=== PATIENT | female | born 1950 | race Caucasian/White ===

== ENCOUNTER 2025-01-10 05:59 | Observation (INO) ==
--- NOTE | 2024-12-14 13:09 | PAT Medication Instructions ---
Medication Instructions Date of Service December 14, 2024 Home Medications alendronate 70 mg tablet 70 mg PO Q7D atenolol 50 mg tablet 50 mg PO QAM atorvastatin 40 mg tablet 40 mg PO QAM calcium 600 mg (as carbonate)-vit D3 10 mcg (400 unit)-minerals tablet 1 tab PO BID famotidine 40 mg tablet 40 mg PO QAM fluoxetine 20 mg capsule (Prozac) 20 mg PO QAM levocetirizine 5 mg tablet 5 mg PO QPM lisinopril 20 mg tablet 20 mg PO QAM lorazepam 1 mg tablet 1 mg PO TID PRN Anxiety multivitamin 1 tab PO QAM aspirin 81 mg tablet,delayed release (Sidney Low Dose Aspirin) 81 mg PO QAM solifenacin 10 mg tablet (Vesicare) 10 mg PO QAM ASK your prescriber and surgeon alendronate 70 mg tablet 70 mg PO Q7D DO NOT take the morning of surgery calcium 600 mg (as carbonate)-vit D3 10 mcg (400 unit)-minerals tablet 1 tab PO BID lisinopril 20 mg tablet 20 mg PO QAM multivitamin 1 tab PO QAM solifenacin 10 mg tablet (Vesicare) 10 mg PO QAM Take morning of surgery With a small sip of water, OTHERWISE NOTHING TO EAT OR DRINK AFTER MIDNIGHT: atenolol 50 mg tablet 50 mg PO QAM atorvastatin 40 mg tablet 40 mg PO QAM famotidine 40 mg tablet 40 mg PO QAM fluoxetine 20 mg capsule (Prozac) 20 mg PO QAM lorazepam 1 mg tablet 1 mg PO TID PRN Anxiety (if needed) aspirin 81 mg tablet,delayed release (Sidney Low Dose Aspirin) 81 mg PO QAM (unless surgeon directed otherwise) Take evening before surgery calcium 600 mg (as carbonate)-vit D3 10 mcg (400 unit)-minerals tablet 1 tab PO BID levocetirizine 5 mg tablet 5 mg PO QPM lorazepam 1 mg tablet 1 mg PO TID PRN Anxiety (if needed) Other Notes If you have any questions please call us at [phone] or [phone] or [phone] or [phone]
--- NOTE | 2024-12-20 11:02 | Anesthesiology Consultation ---
Date of Service December 20, 2024 Assessment & Plan (1) Encounter for pre-operative examination: Plan - Outpatient joint assessment: Patient is currently scheduled for inpatient pathway. If re-evaluated and patient/surgeon requests outpatient pathway, patient is not ideal candidate for outpatient joint program from anesthesia standpoint. Chart Review Chart Review: Acceptable Risk for Surgery and Patient seen in Pre Admission Testing Teaching & Discussion Pre-Anesthesia Teaching/Discussion Notes: Instructed NPO after midnight before surgery, except medications with 15 cc of water. Medication instructions provided according to the PAT guidelines. History Surgery Operation Date: 01/10/25 10:40 Proposed Procedures p RightTotal Knee Arthroplasty - Lukasz Garcia MD Height/Weight Height: 5 ft 6 in Weight: 100.4 kg Allergies Allergy/AdvReac Type Severity Reaction Status Date / Time adhesive tape Allergy Intermediate Rash Verified 12/07/24 15:32 cefuroxime AdvReac Intermediate nausea and Verified 12/07/24 15:32 vomiting Medications Home Medications Medication Instructions Recorded Confirmed Last Taken alendronate 70 mg tablet 70 mg PO Q7D 06/08/22 12/07/24 09/21/23 atenolol 50 mg tablet 50 mg PO QAM 06/08/22 12/07/24 09/23/23 08:00 atorvastatin 40 mg tablet 40 mg PO QAM 06/08/22 12/07/24 09/23/23 08:00 calcium 600 mg (as carbonate)-vit 1 tab PO BID 06/08/22 12/07/24 09/23/23 08:00 D3 10 mcg (400 unit)-minerals tablet famotidine 40 mg tablet 40 mg PO QAM 06/08/22 12/07/24 09/23/23 08:00 fluoxetine 20 mg capsule (Prozac) 20 mg PO QAM 06/08/22 12/07/24 09/23/23 08:00 levocetirizine 5 mg tablet 5 mg PO QPM 06/08/22 12/07/24 09/22/23 22:00 lisinopril 20 mg tablet 20 mg PO QAM 06/08/22 12/07/24 09/22/23 12:00 lorazepam 1 mg tablet 1 mg PO TID PRN Anxiety 06/08/22 12/07/24 09/23/23 08:00 multivitamin 1 tab PO QAM 08/25/23 12/07/2409/23/23 08:00 aspirin 81 mg tablet,delayed 81 mg PO QAM 12/07/24 12/07/24 Unknown release (Sidney Low Dose Aspirin) solifenacin 10 mg tablet See Rx Instructions .Route 12/18/24 Unknown .COMPLEX #30 tabs Past Medical History Medical History Anxiety GERD (gastroesophageal reflux disease) controlled, stable per pt depending on certain foods History of COVID-19 (~2020) Jun 2021 > not hospitalized > mild symptoms;no current symptoms History of Mohs micrographic surgery for skin cancer nose History of nephrolithiasis 1 year ago Hyperlipidemia Hypertension controlled, stable per pt Migraine stable per pt On home oxygen therapy 2 LPM at HS Osteoporosis Overactive bladder Sleep apnea on supplemental oxygen 2 L HS, no CPAP or other device Patient denies h/o stroke, seizures, heart attack, heart failure, DM, blood clots/DVTs or blood transfusions. Exercise / Class Metabolic Activity III < 4 Walking/Shop/Light housework (denies chest discomfort or shortness of breath with usual activities) Past Family History Family History Sister Diabetes Past Surgical History Surgical History History of appendectomy History of carpal tunnel release of both wrists History of cholecystectomy History of colonoscopy History of hysterectomy History of repair of rectocele w/bladder tacking History of surgery on left wrist cyst removed History of total left knee replacement Hx of bilateral cataract extraction Hx of tonsillectomy Hx of tubal ligation S/P cystoscopy with ureteral stent placement w/laser lithotripsy; stent now removed Past Anesthesia History No Hx of Anesthesia Complications and No Family Hx of Anesthesia Complications History of PONV No Hx of PONV and No Hx of Motion Sickness Social History Smoking Status: Never smoker Do You Dip or Chew Tobacco: No Hx Alcohol Use: No Hx Substance Use: No substance use type: does not use Review of Systems Patient denies chest pain, shortness of breath, dyspnea on exertion, fever, chills, cough, wheezing, or palpitations. Physical Exam Vital Signs Vitals BP 148/84 P 53 TEMP 98.2 SP02 96% on RA RESP 18 Physical Patient resting comfortably in chair in no acute distress, alert and oriented, responding appropriately throughout visit Full cervical extension range of motion without pain TMD < 3 finger breadths Mallampati Score 3 Dentition: intact, denies chipped or loose teeth, caps/crowns, implants or bridg es Lungs: normal respiratory effort. Good air movement, clear throughout to auscultation, no adventitious breath sounds Cardiac: regular rate and rhythm, no murmurs noted Carotid arteries: negative bruit bilat Lab Results Anesthesia Preop Results Results Anesthesia Widget: WBC 2.96 K/ul (4.8-10.8) L 12/20/24 Hgb 12.2 g/dl (12.0-16.0) 12/20/24 Hct 35.8 % (37.0-47.0) L 12/20/24 Plt 187 K/uL (130-400) 12/20/24 Na 136 mmol/L (136-145) 12/20/24 K 4.1 mmol/L (3.5-5.1) 12/20/24 Cl 101 mmol/L (98-107) 12/20/24 CO2 33 mmol/L (21-32) H 12/20/24 BUN 16 mg/dl (6-23) 12/20/24 Creat 0.84 mg/dl (0.6-1.2) 12/20/24 Glucose Level 86 mg/dl (70-99(Fasting)) 12/20/24 PT 10.5 Seconds (9.0-12.0) 12/20/24 PTT 28 Seconds (21-31) 12/20/24 INR 1.0 (0.9-1.1) 12/20/24 Blood Type O Positive 12/20/24 Antibody Screen NEGATIVE 12/20/24 Testing Electrocardiogram Date: 12/20/24 Sinus bradycardia, rate 55 bpm Chest X-Ray Date: 12/20/24 No acute chest disease.
--- NOTE | 2025-01-04 10:16 | History & Physical Report ---
Date of Service January 04, 2025 Assessment & Plan (1) Right knee DJD: 74-year-old female 15 months out placement with advanced right knee DJD. She failed conservative measures. Happy with the left knee and would like to have her right knee replaced. Plan: We are going to proceed with a right total knee replacement. The risks and benefits of the procedure were explained and the patient understands. Informed consent obtained. He had problems with oxycodone last time and will try tramadol and see if he does any better without with postoperative pain. But will use aspirin for DVT prophy. He is planned to be discharged to home using home health. (2) Status post left knee replacement: (3) Hypertension: (4) Hyperlipidemia: (5) GERD (gastroesophageal reflux disease): History of Present Illness Chief Complaint: . Persistent right knee pain and discomfort. Primary Care Provider: Lary Eng PA-C . The patient is a 74-year-old female who presents now for surgical treatment of her right knee. Stef a long history of knee problems had her left knee replaced about 15 months ago. She has occasional aching pain in this knee but doing pretty well. She continued be limited and bothered by right knee pain. She has had injections which have become less successful over time. Describes global pain. The more she is up and onto more it hurts. She limps more as the day goes on. She has nighttime pain. Ready to have this knee fixed. Allergies Allergy/AdvReac Type Severity Reaction Status Date / Time adhesive tape Allergy Intermediate Rash Verified 12/07/24 15:32 cefuroxime AdvReac Intermediate nausea and Verified 12/07/24 15:32 vomiting Home Medications Medication Instructions Recorded Confirmed Type alendronate 70 mg tablet 70 mg PO Q7D 06/08/22 12/07/24 History atenolol 50 mg tablet 50 mg PO QAM 06/08/22 12/07/24 History atorvastatin 40 mg tablet 40 mg PO QAM 06/08/22 12/07/24 History calcium 600 mg (as carbonate)-vit 1 tab PO BID 06/08/22 12/07/24 History D3 10 mcg (400 unit)-minerals tablet famotidine 40 mg tablet 40 mg PO QAM 06/08/22 12/07/24 History fluoxetine 20 mg capsule (Prozac) 20 mg PO QAM 06/08/22 12/07/24 History levocetirizine 5 mg tablet 5 mg PO QPM 06/08/22 12/07/24 History lisinopril 20 mg tablet 20 mg PO QAM 06/08/22 12/07/24 History lorazepam 1 mg tablet 1 mg PO TID PRN Anxiety 06/08/22 12/07/24 History multivitamin 1 tab PO QAM 08/25/23 12/07/24 History aspirin 81 mg tablet,delayed 81 mg PO QAM 12/07/24 12/07/24 History release (Sidney Low Dose Aspirin) solifenacin 10 mg tablet See Rx Instructions .Route 12/18/24 Rx .COMPLEX #30 tabs Past Med/Surg History Problem List Urgency incontinence Medical History History of nephrolithiasis 1 year ago Osteoporosis Sleep apnea on supplemental oxygen 2 L HS, no CPAP or other device GERD (gastroesophageal reflux disease) controlled, stable per pt depending on certain foods History of COVID-19 (~2020) Jun 2021 > not hospitalized > mild symptoms;no current symptoms History of Mohs micrographic surgery for skin cancer nose Overactive bladder Anxiety Migraine stable per pt Hyperlipidemia Hypertension controlled, stable per pt On home oxygen therapy 2 LPM at HS Surgical History History of total left knee replacement History of repair of rectocele w/bladder tacking Hx of tubal ligation History of carpal tunnel release of both wrists S/P cystoscopy with ureteral stent placement w/laser lithotripsy; stent now removed Hx of bilateral cataract extraction Hx of tonsillectomy History of surgery on left wrist cyst removed History of colonoscopy History of hysterectomy History of cholecystectomy History of appendectomy Family History Sister Diabetes Social History Smoking Status: Never smoker Second Hand Exposure: No; Do You Dip or Chew Tobacco: No; Tobacco Cessation Education Requested by Patient: No Hx Alcohol Use: No Hx Substance Use: No Preferred Language: Syriac Communication Ability: Effective 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 Physical Exam . Physical examination reveals a pleasant middle-age female. Looks to be in pretty good health. Examination of both knees reveal patient walks independently. Examination of the right knee reveals slight varus alignment to her knee. Tender with medial joint line. Small knee effusion. Range of motion 5-1 20. No instability. No pain with hip motion. Examination left knee reveals a well-healed incision. She has anatomic alignment to the knee. Range of motion 0-1 20. Good straight leg raise. No instability. Constitutional WD/WN, vitals as above Respiratory normal respiratory effort, lungs clear to auscultation Cardiovascular RRR, no murmur, no edema Gastrointestinal (Abdomen) normal bowel sounds, soft, nontender, no hepatosplenomegaly Results & Data Results & Data Laboratory Results . X-rays of both knees were reviewed. X-rays of the right knee reveal advanced medial compartment arthritis. She got complete loss of the medial joint space. Diffuse osteopenia. Osteophytes primarily medially. The left knee replacement looks in good position without problems. Diagnostic Findings . PG Care Time/CCT Total # of Minutes Spent Total Time Spent with Patient: Total time spent is greater than 50% in coordination of care (as documented) at patient's floor/unit and/or counseling patient: Coding Level of Care Code None Diagnoses Right knee DJD M17.11 Status post left knee replacement Z96.652 Hypertension I10 Hyperlipidemia E78.5 GERD (gastroesophageal reflux disease) K21.9
[2025-01-10] MEDS: CeleBREX 200 MG CAP PO SCH (06:30)
[2025-01-10] MEDS: LR 500ML BOLUS, THEN 15ML/HR IV SCH (06:30)
[2025-01-10] MEDS ORDERED: ROPIVACAINE 0.5% 5 MG/ML 30 ML VIAL ONE (06:30)
[2025-01-10] MEDS: ACETAMINOPHEN 500 MG TAB PO SCH ×2 (06:30→12:43)
[2025-01-10] MEDS ORDERED: BUPIVACAINE 0.5 % 5 MG/1 ML PF 10ML VIAL ONE (06:30)
[2025-01-10] MEDS: LR 60ML/HR IV SCH (06:31)
[2025-01-10] MEDS: dexAMETHasone**PF** 10 MG/ML VIAL IV SCH (06:31)
[2025-01-10] MEDS: METOCLOPRAMIDE HCL 10 MG TABLET PO SCH (06:31)
[2025-01-10] MEDS: FAMOTIDINE 20 MG TAB PO SCH (06:31)
--- NOTE | 2025-01-10 06:44 | History & Physical Bridge Note ---
Date of Service January 10, 2025 History & Physical Bridge Note I have examined the patient, reviewed the History & Physical and in the interval since the performance of the History & Physical I have noted the following changes of clinical significance: no changes noted
[2025-01-10] MEDS ORDERED: fentaNYL citrate PF 100 MCG/2 ML VIAL ONE (06:55)
[2025-01-10] MEDS ORDERED: MIDAZOLAM HCL 1 MG/ML 2ML VIAL ONE ×2 (06:55)
[2025-01-10] MEDS: ceFAZolin 2000MG 2,000 MG/15 ML SYR IV SCH ×2 (07:19→15:27)
[2025-01-10] MEDS ORDERED: PROPOFOL IV EMULSION 10 MG/ML 20 ML VIAL IV ONE ×2 (07:21→08:33)
[2025-01-10] MEDS ORDERED: PROMETHAZINE HCL 6.25 MG in SODIUM CHLORIDE 0.9% 50 ML IV PRN (07:44)
[2025-01-10] MEDS ORDERED: ONDANSETRON INJ 2 MG/ML 2 ML VIAL IV PRN ×2 (07:44→10:44)
[2025-01-10] MEDS ORDERED: ATROPINE SULFATE 0.1 MG/ML 10ML SYR IV PRN (07:44)
[2025-01-10] MEDS ORDERED: ePHEDrine sulfate 50 MG/ML AMP IV PRN (07:44)
[2025-01-10] MEDS ORDERED: fentaNYL citrate PF 100 MCG/2 ML VIAL IV PRN (07:44)
[2025-01-10] MEDS: ORTHO JOINT ANESTHETIC ONE (07:51)
[2025-01-10] MEDS: ROPIV 0.5% 246mg, Ketorolac 30mg, EPINEPHrine 0.5mg in NSS INFIL SCH (07:51)
--- OUTSIDE RECORDS SUMMARY | 2025-01-10 07:53 | External Medical Summary | Summary of Care ---
Author Name Unknown Organization [facility] Address [address] [facility] [place] [address] Phone [phone] Care Team Providers Care Special Education Associate Name Role Phone Lary Eng PA-C Primary Care Provider + Reason for Visit * Reason Comments Follow Up Pt here for yearly f ull skin exam. Hx of non-melanoma skin cancer. No concerns. Encounter Details Date Type Department Care Team (Late st Contact Info) Description 12/28/2024 3:40 PM EST [facility] [address] [place] [phone] Salma Jorgensen PA-C [address] [place] [address] [place] [phone] History of nonmelanoma skin cancer*; Hypertrophic scar; Skin exam, screening for cancer; Multiple nevi; Lentigines; Ephelides; Actinic keratosis Allergies Active Allergy Reactions Criticality Noted Date Comments Cefuroxime Axetil Nausea/vomiting 12/13/2008 documented as of this encounter (statuses as of 12/29/2024) Medications OXYGEN 2 liter at hs 0 5 Active ASPIRIN 81 MG PO CHEW One pill by mouth once a day with food 100 5 9 Active MULTIVITAL PO TABS None Entered Active Tamsulosin HCl 0.4 MG Oral Capsule (Flomax) Take 1 Capsule by mouth in the morning. Active Famotidine 40 MG Oral Tablet (Pepcid)Indications: Gastroesophageal reflux disease without esophagitis Take 1 Tablet by mouth daily as needed. 3 Active Calcium Carbonate 600 MG Oral Tablet (Calcium 600)Indications:High risk for fracture due to osteoporosis by DEXA scan Take 1 Tablet by mouth 2 times a day with morning and evening meals. 3 Active LORazepam 1 MG Oral Tablet (Ativan)Indications: Anxiety 1 tab by mouth 3 times a day as needed for nerves 90 Tablet 2 4 Active Atenolol 50 MG Oral Tablet (Tenormin) TAKE ONE TABLET BY MOUTH EVERY DAY 90 Tablet 2 11/01/2024 8:36 AM EST 4 Active Alendronate Sodium 70 MG Oral Tablet (Fosamax)Indications :High risk for fracture due to osteoporosis by DEXA scan TAKE 1 TABLET BY MOUTH ONCE A WEEK AT LEAST 30 MINUTES BEFORE FIRST FOOD/BEVERA GE. DONT LIE DOWN FOR 30 MINUTES AFTER TAKING 12 Tablet 3 11/09/2024 7:05 AM EST 4 08/16/20 25 Active Lisinopril 20 MG Oral Tablet (Prinivil)Indication s:HTN, goal below 140/90 TAKE ONE TABLET BY MOUTH EVERY DAY 90 Tablet 2 10/05/2024 11:53 AM EST 4 Active FLUoxetine HCl 20 MG Oral Capsule (PROzac)Indications: Anxiety state TAKE ONE CAPSULE BY MOUTH EVERY DAY 90 Capsule 2 10/05/2024 11:53 AM EST 4 Active Atorvastatin Calcium 40 MG Oral Tablet (Lipitor)Indications :Dyslipidemia, goal LDL below 130 TAKE ONE TABLET BY MOUTH EVERY DAY 100 Tablet 10/17/2024 2:17 PM EST 4 10/16/20 25 Active Levocetirizine Dihydrochloride 5 MG Oral TabletIndications:Al lergic sinusitis TAKE ONE-HALF TABLET BY MOUTH EVERY EVENING. 45 Tablet 3 11/01/2024 8:36 AM EST 4 10/29/20 25 Active documented as of this encounter (statuses as of 12/29/2024) Active Problems Problem Noted Date Diagnosed Date Generalized osteoarthritis of multiple sites 09/2024 Migraine with aura and witho ut status migrainosus, not intractable 08/02/2024 Neutropenia 08/02/2024 Primary osteoarthritis of right knee 05/10/2024 Vitamin D deficiency 09/03/2023 High risk for fracture due to osteoporosis by DE XA scan 03/03/2023 MEDICATION USE AGREEMENT 09/02/2022 Allergic rhinitis 02/11/2022 History of carpal tunnel repair 02/03/2022 Dupuytren's disease of palm of both hands 2021 Arthritis of wrist 02/03/2022 Primary osteoarthritis of both knees 01/07/2021 Chronic bilateral low back pain without sciatica 01/07/2021 Mood disorder 06/12/2020 Intertriginous candidiasis 06/12/2020 Obesity (BMI 30.0-34.9) 06/15/2019 Nocturnal leg cramps 10/05/2018 Nocturnal hypoxemia 10/05/2018 HTN, goal below 140/90 10/05/2018 Urge incontinence of urine 02/03/2018 Hx of nonmelanoma skin cancer 01/13/2018 Overview (07/14/2022): squamous cell carcinoma (L mid forearm 04/2022), basal cell carcinoma (L nare) Hyperlipidemia with target LDL less than 100 10/2011 Gastroesophageal reflux disease without esophagi tis 04/10/2009 Anxiety 03/29/2007 documented as of this encounter (statuses as of 12/29/2024) Resolved Problems Problem Noted Date Diagnosed Date Resolved Date Trigger ring finger of left hand 02/03/2022 03/03/2023 Chronic pain of both knees 06/12/2020 0 08/13/2021 Age-related osteoporosis wit hout current pathological fracture 04/05/2019 03/03/2023 Kidney disease, chronic, sta ge III (GFR 30-59 ml/min) 10/10/2018 04/05/2019 Overview: Per CKD protocol #1 ADVANCE DIRECTIVE INFORMATION 03/18/2018 10/11/2019 Overview (06/29/2005): No, Advance Directive brochure given to patient at prior appointment. Body mass index (BMI) of 40. 0 to 44.9 in adult 02/08/2018 10/05/2018 Overview: Per Obesity protocol #1 Feeling of incomplete bladder emptying 02/03/2018 06/08/2018 Migraine with aura and witho ut status migrainosus, not intractable 08/21/2015 09/03/2023 Dyspnea and respiratory abnormality 04/10/2009 06/08/2018 Overview (09/21/2017): ICD-10 update of inactive term Other specified forms of hearing loss 04/10/2009 06/08/2018 Other chronic sinusitis 04/10/200905/29 Chronic rhinitis 04/10/2009 06/08/2018 Migraine without aura and wi thout status migrainosus, not intractable 06/28/2001 02/21/2020 documented as of this encounter (statuses as of 12/29/2024) Immunizations Name Administration Dates Next Due COVID-19 mRNA, LNP-s, No Pre serve, 2-Dose Series (Moderna) 02/01/2021,12/28/2020 COVID-19, MRNA-LNP, PF, 30 M CG/0.3 mL, 12 YRS AND ABOVE, IM (PFIZER-Comirnaty) 10/12/2024,01/06/2024 COVID-19, mRNA, LNP-s, PF, B ooster, 100mcg/0.5mg (Moderna) 05/29/2022,10/27/2021 Covid-19, Mrna, Lnp-s, Pf, B ivalent, 30 Mcg, IM, 12 yrs and above (Pfizer) 09/16/2022 Influenza, Whole Virus 10/10/1998,09/04/1993 Pneumococcal Conjugate Vacc, 13 Valent (Prevnar) 02/19/2016 Pneumococcal Polysaccharide PPV23 (Pneumovax) 03/31/2017,10/22/2006 Season Influenza, Quad, PF, Adjuvanted, 65+ Yrs, IM (FLUAD) 09/16/2020 Seasonal Influenza Vac., MDV , IM, 0.5 mL (Fluzone) 08/21/2015,08/22/2014,08/29/2013,09/12,09/01/2011,09/11/2010,09/09/2009 ,09/07/2008,10/22/2006,09/01/2004,08/30,09/18/2002 Seasonal Influenza, High Dos e, Trivalent, PF, IM (Fluzone HD) 08/02/2024 Seasonal Influenza, PF, 6 M & above, IM , (FluLaval or Fluzone) 09/07/2018,09/29/2017 Seasonal Influenza, Quadriva lent Hd (Fluzone Hd) 08/25/2023,09/02/2022,08/13/2021 Seasonal Influenza, Quadriva lent, No Preserve, IM 08/12/2016 Seasonal Influenza, Trivalen t, Adjuvanted, 65+ YRS, PF, (Fluad) 09/01/2019 TD, Preservative Free 04/05/2019 TDAP, Age 7 and older, IM (Adacel) 08/06/2008, Varicella Zoster Vaccine (Adult) 03/29/2013 Zoster Vaccine Recombinant (Shingrix) 08/21/2020 ,05/15/2020 documented as of this encounter Social History Tobacco Use Types Packs/Day Years Used Date Smoking Tobacco: Never Smokeless Tobacco: Never Alcohol Use Standard Drinks/Week Comments Not Currently 0 (1 standard drink = 0.6 oz pur e alcohol) social PHQ-2 Answer Date Recorded PHQ Adult Total Score 0 04/15/2024 Hunger Vital Sign Answer Date Recorded Worried About Running Out of Food in the Last Ye ar Never true 10/11/2019 Ran Out of Food in the Last Year Never true 10/11/2019 Comments No Sex and Gender Information Value Date Recorded Sex Assigned at Female 06/19/2019 9:25 AM EDT Legal Sex Female 7:01 AM EST Gender Identity Female 06/19/2019 9:25 AM EDT Sexual Orientation Not on file documented as of this encounter Patient Instructions * Patient Instructions* Salma Jorgensen PA-C - 12/28/2024 3:39 PM EST SUNSCREEN USE AND SUN PROTECTION: 1. The best protection is sun avoidance. Seek shade if you can, especially between 10am to 4pm (peak sun hours). 2. Use sunscreen with an SPF (Sun Protection Factor - the number on most sunscreen bottles) of 30 or more that protects from Ultraviolet A (UVA) and Ultraviolet B (UVB) wavelength light (strongly recommend SPF 50). This is referred to as broad spectrum sun protection because it protects from most wa velengths in both spectrums of UVA and UVB light. Unfortunately, even though the protection is broad it is not complete, therefore making sun avoidance the best protection. UVB and UVA have both beenimplicated in causing skin cancers. Older sunscreens only protected from UVB and sunscreens with added UVA protection should contain Titanium dioxide, Zinc oxide, or Avobenzone. Other oil free, non-comedogenic lotion with SPF 30 or greater is fine. 3. Use sun protection if outside for 15 minutes or more. Apply 20-30 minutes before going out and reapply every 1-2 hours. No sunscreen is truly water ''proof'' and it will wash away with sweat, swimming and rubbing. 4. Wear tightly woven, loose fitting (cooler) long sleeved clothing, UV-blocking sun glasses (eyes need protection as well) and wide-brimmed hatwear (no straw hats with holes because light still getsthrough). Strongly recommended *Neutrogena Pure and Free Baby SPF 60 (have separate face and body lotions) orCeraVe AM facial lotion (with SPF 30). If looking for non toxic alternatives-look for non-ludin particle zinc. Product examples; Think sport, Think baby, Arvin, [employer], [facility], [place] baby. "Baby" products can be used for all ages. Skin Cryosurgery (FREEZING) Instructions Most areas treated by freezing will need very little care. You may wash normally with soap and water and leave any small crusts in place. Vaseline to treated areas 2-3 times per day is a good idea, you do not need to keep them covered with bandages. If a large blister forms and breaks, you will want to apply a light dressing to the area. CHANGE DRESSING ONCE DAILY 1. Wash hands and remove the original dressing(s) in 12-24 hours. 2. Gently clean wound(s) with soap and water. Rinse with water and pat the wound dry. 3. Apply a thin layer of Vaseline ointment with a Q-tip. 4. Cover with a bandage if area(s) is not on the face or scalp. A dressing is not required on the face or scalp. Use non-adherent dressing and paper tape if you are sensitive to band-aid adhesive sensitive. 5. If you have any concerns about the healing wound, please either or our main Dermatology office in [place] at [phone]. If an emergency, please go to your nearest Emergency Department. documented in this encounter Progress Notes * Yuniel Garcia MD - 12/29/2024 7:28 AM EST I have seen and examined the patient via teledermatology review of chart note and photos with Slama Jorgensen PA-C. I have reviewed and agree with the assessment and plan. * Salma Jorgensen PA-C - 12/28/2024 3:40 PM EST SUBJECTIVE: History of Present Illness: Milagro Tanner is a 73 year old female seen today for follow up of full skin exam. Previous office visit: 10/27/2022 Last attempted treatments include: NONE No new or changing lesions, per pt. 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 REVIEW OF SYSTEMS: SKIN: No other new or changing moles. HEME/LYMPH: No new or enlarging lumps or bumps. CONSTITUTIONAL: No nausea, vomiting, fevers, chills, diarrhea. No recent unintended weight loss, night sweats, appetite or malaise. RESP: negative MSK/EXT: Negative or as per HPI GI: negative CV: Negative or as per HPI Rest of systems are negative or as per HPI SKIN CANCER HX: squamous cell carcinoma (L mid forearm 04/2022), basal cell carcinoma (L nare), actinic keratoses (Efudex L forearm/face 07/20) Reviewed, same day as visit, 0 [facility] Dermatology lab work(s)/pathology report(s) as well as those sent by referring provider prior to seeing pt. MEDICA TIONS: Current Outpatient Medications Medication Sig Dispense Refill OXYGEN 2 liter at hs 0 ASPIRIN 81 MG PO CHEW One pill by mouth once a day with food 100 5 MULTIVITAL PO TABS None Entered Tamsulosin HCl 0.4 MG Oral Capsule (Flomax) Take 1 Capsule by mouth in the morning. Famotidine 40 MG Oral Tablet (Pepcid) Take 1 Tablet by mouth daily as needed. Calcium Carbonate 600 MG Oral Tablet (Calcium 600) Take 1 Tablet by mouth 2 times a day with morning and evening meals. LORazepam 1 MG Oral Tablet (Ativan) 1 tab by mouth 3 times a day as needed for nerves 90 Tablet 2 Atenolol 50 MG Oral Tablet (Tenormin) TAKE ONE TABLET BY MOUTH EVERY DAY 90 Tablet 2 Alendronate Sodium 70 MG Oral Tablet (Fosamax) TAKE 1 TABLET BY MOUTH ONCE A WEEK AT LEAST 30 MINUTES BEFORE FIRST FOOD/BEVERAGE. DONT LIE DOWN FOR 30 MINUTES AFTER TAKING 12 Tablet 3 Lisinopril 20 MG Oral Tablet (Prinivil) TAKE ONE TABLET BY MOUTH EVERY DAY 90 Tablet 2 FLUoxetine HCl 20 MG Oral Capsule (PROzac) TAKE ONE CAPSULE BY MOUTH EVERY DAY 90 Capsule 2 Atorvastatin Calcium 40 MG Oral Tablet (Lipitor) TAKE ONE TABLET BY MOUTH EVERY DAY 100 Tablet 0 Levocetirizine Dihydrochloride 5 MG Oral Tablet TAKE ONE-HALF TABLET BY MOUTH EVERY EVENING. 45 Tablet 3 No current facility-administered medications for this visit. ALLERG IES: Cefuroxime axetil OBJECT RODRI: GEN: alert, no distress, appears oriented, pleasant and cooperative. SKIN: Detailed exam of hair, face including lids and lips, neck, chest, abdomen, back, bilateral upper ext. (arm, hand, fingers), bilateral lower ext. (leg, foot, toes), palpation of scalp, fingernails, toenails, inguinal areas, groin (mons pubis), buttocks and anus completed: 1. L eyebrow-4 white scaly non indurated papules. 2. L preauricular region-Vertical scar with medial redundant skin. 3. L nare-White atrophic scar with central 3-4mm hypertrophic region, no erythema, no crust. 4. Face/trunk/bilat arms-About 60 total; light and light-medium pink soft papules. 5. Face/neck/trunk/bilat arms-Many well defined light to medium brown homogenous stellate and non stellate macules. ASSESS MENT/PLAN: Actinic keratoses (x4) on L eyebrow-Cryosurgery explained to the patient. Discussed risk of blistering, crusting, infection, scarring, reoccurrence of lesions, hypopigmentation, post inflammatory hyperpigmentation with pt prior to procedure. Verbal consent obtained. Time out called immediately prior to procedure and patient identification and site verified. Cryo therapy performed with Liquid Nitrogen via cryo spray unit to lesion (s) noted above. Location noted in physical exam. Post op course explained. 2. Hypertrophic scar with redundant skin s/p FTSG for basal cell carcinoma on L preauricular region-No sign of recurrence. 3. Hypertophic scar s/p graft placement for basal cell carcinoma on L nare- Asymptomatic, no tx desired at this time. 4. Nevi on face/trunk/bilat arms and legs-no tx needed, pt given reassurance and written education about diagnosis. Skin cancer brochure given at previous office visit (pt declined need for another) and ABCDE's discussed with patient. Annual full body skin examination (unless I recommended otherwise), self-examination, and sun protection (SPF 30+ daily to sun exposed areas, with reapplication every 1-2 hours when out in sun for long periods of time) advised and discussed. Recommended sooner follow up for new or changing lesions. These changes include rapid enlargement, changes in color or shape or symptoms, bleeding, or other concerns. The common features and behavior of non-melanoma skin cancers (e.g. BCC/SCC) as well as the ABCDEs and ugly duckling features of melanoma were also reviewed. 5. Lentigines and ephelides on face/neck/trunk/bilat arms/legs-no tx needed, pt given reassurance. Patient alone today. Photo(s) of #1-5 taken, pt verbally consented to having photo(s) taken. Follow-up: 1 year for full skin exam Applicable photos (if any) and chart reviewed by Dr. Yuniel Garcia. Presumed diagnoses, expected natural histories, and management options discussed with the patient at length. Questions were addressed and anticipatory guidance provided. They were instructed to contact me if additional questions, concerns, or problems develop in the interim. -There were no barriers to learning and no other pain was related to today's visit. The patient and/or person accompanying patient demonstrates understanding of the visit and treatment. Salma Jorgensen PA-C 12/28/2024 3:39 PM Dermatology, [place] [address] [place] [phone] documented in this encounter Nursing Notes * Sidra Song LPN - 12/28/2024 3:18 PM EST Patient identified by full name and date of Chief Complaint Patient presents with Follow Up Pt here for yearly full skin exam. Hx of non-melanoma skin cancer. No concerns. documented in this encounter Plan of Treatment Upcoming Encounters Date Type Department Care Team (Late st Contact Info) Description 04/04/2025 11:00 AM EDT Appointment Radiology, [facility] [address] [place] [address] 05/04/2025 10:00 AM EDT Laboratory Laboratory Patient Service [address] [phone] [address] 05/09/2025 9:00 AM EDT Office Visit [address] [phone] Lary Eng PA-C [address] [place] [address] 02/26/2026 10:20 AM EDT [facility] [address] [place] [phone] Salma Jorgensen PA-C [address] [place] [address] [place] [address] Health Maintenance Due Date Last Done Comments Cologuard 1996 Sigmoidoscopy 1996 Fecal Occult Blood Test 12/08/2007 12/08/2006 Adult Wellness Visit 02/20/2021 02/21/2020 DXA Scan 03/19/2025 03/19/2023, 02/28, 01/20/2018, Additional history exists Depression Screening 04/15/2025 04/15/2024, 02/20/20 15 Mammogram 08/16/2025 08/16/2024, 02/28, 12/11/2021, Additional history exists GFR 08/25/2025 08/25/2024, 03/2024, 08/27/2023, Additional history exists Albumin/Creatinine Ratio 09/02/2025 09/02/2022 Colonoscopy 09/25/2026 09/25/2021 Colorectal Cancer Screening 09/25/2026 DTap/Tdap Vaccines (4 - Td or Tdap) 04/05/2029 04/05/2019, 08/06/2008, 08/06/2008 Lipid Panel 05/03/2029 05/03/2024, 07/31, 09/02/2022, Additional history exists Pneumococcal Vaccine: 50+ Years Completed 03/31/2017, 02/19/2016, 10/22/2006 Zoster Vaccines Completed 08/21/2020, 04/29, 03/29/2013 RETIRED - COLONOSCOPY-EVERY 5 YRS AGES 18-100 Discontinued 09/25/2021 VITAMIN D LEVEL ONCE IN A LIFETIME-USE SMARTSET# [id number] Completed 05/03/2024, 08/27/2023, 09/02/2011 Influenza Vaccine (FLU shot) Completed 08/02/2024, 08/25/2023, 09/02/2022, Additional history exists COVID-19 Vaccine Completed 10/12/2024, 06/2024, 09/16/2022, Additional history exists HPV (Gardasil) Vaccine Aged Out No lo nger eligible based on patient's age to complete this topic Hepatitis B Vaccine Aged Out No longe r eligible based on patient's age to complete this topic MENINGOCOCCAL (MENACTRA/MENVEO) Aged Out No longer eligible based on patient's age to complete this topic documented as of this encounter Medical Devices Not on filedocumented as of this encounter Procedures Procedure Name Priority Date/Time Associated Diagnosis Comments DERM EXAM - DERM (IMAGES ONLY, NO REPORT) Routine 12/28/2024 3:39 PM EST Hypertrophic scar History of nonmelanoma skin cancer Skin exam, screening for cancer Multiple nevi Lentigines Ephelides Actinic keratosis documented in this encounter Results * DERM EXAM - DERM (IMAGES ONLY, NO REPORT) (12/28/2024 3:39 PM EST) Narrative Scheduling, Silent - 12/28/2024 3:39 PM EST This is an imaging study not interpreted or resulted by a [employer] or [employer] contracted radiologist. Salma Jorgensen PA-C RADIOLOGY ([facility] ) Final Result documented in this encounter Visit Diagnoses Diagnosis History of nonmelanoma skin cancer- Primary Personal history of other malignant neoplasm of skin Hypertrophic scar Keloid scar Skin exam, screening for cancer Screening for malignant neoplasm of the skin Multiple nevi Benign neoplasm of skin, site unspecified Lentigines Other dyschromia Ephelides Other dyschromia Actinic keratosis documented in this encounter Care Teams Special Education Associate Relationship Specialty Start Date End Date Lary Eng PA-C [address] [place] [phone] PCP - General Physician Roving Teller 06/05/19 documented as of this encounter
--- OUTSIDE RECORDS SUMMARY | 2025-01-10 07:53 | External Medical Summary | Summary of Care ---
Author Name Unknown Organization [facility] Address [address] [place] [address] Phone [phone] Care Team Providers Care Crna Name Role Phone Lary Eng PA-C Primary Care Provider + Encounter Details Date Type Department Care Team (Latest Contact Info) Description 12/28/2024 3:39 PM EST - 12/28/2024 11:59 PM EST Hospital Encounter Radiology Film File [address] [place] [address] Arrived Discharge Disposition: Home - Self Care Allergies Active Allergy Reactions Criticality Noted Date [...] CG/0.3 mL, 12 YRS AND ABOVE, IM ([facility] 10/12/2024,01/06/2024 COVID-19, mRNA, LNP-s, PF, B ooster, 100mcg/0.5mg (Moderna) 05/29/2022,10/27/2021 Covid-19, Mrna, Lnp-s, Pf, B ivalent, 30 Mcg, IM, 12 yrs and above ([employer] Software) 09/16/2022 Pneumococcal Conjugate Vacc, 13 Valent (Prevnar) 02/19/2016 Pneumococcal Polysaccharide PPV23 (Pneumovax) 03/31/2017,10/22/2006 Season Influenza, Quad, PF, Adjuvanted, 65+ Yrs, IM (FLUAD) 09/16/2020 Seasonal Influenza Vac., MDV , IM, 0.5 mL (Fluzone) 08/21/2015,08/22/2014,08/29/2013,09/12,09/01/2011,09/11/2010,09/09/2009 ,09/07/2008,10/22/2006 Seasonal Influenza, High Dos e, Trivalent, PF, [...] on file documented as of this encounter Plan of Treatment Upcoming Encounters Date Type Department Care Team (Late st Contact Info) Description 04/04/2025 11:00 AM EDT Appointment Radiology, [facility] [address] [place] [address] 05/04/2025 10:00 AM EDT Laboratory Laboratory Patient Service [facility] [address] [place] [phone] [address] 05/09/2025 9:00 AM EDT Office Visit [facility] [address] [place] [phone] Lary Eng PA-C [address] [place] [address] 02/26/2026 10:20 AM EDT Office Visit [address] [place] [phone] Salma Jorgensen PA-C [address] [place] [address] [place] [phone] Health Maintenance Due Date Last Done Comments Cologuard 1996 Sigmoidoscopy 1996 Fecal Occult Blood Test 12/08/2007 12/08/2006 Adult Wellness Visit 02/20/2021 02/21/2020 DXA Scan 03/19/2025 03/19/2023, 02/28, 01/20/2018, Additional history exists Depression Screening 04/15/2025 04/15/2024, 02/20/20 15 Mammogram 08/16/2025 08/16/2024, 02/28, 12/11/2021, Additional history exists GFR 08/25/2025 08/25/2024, 0603/2024, 08/27/2023, Additional history exists Albumin/Creatinine Ratio 09/02/2025 [...] D LEVEL ONCE IN A LIFETIME-USE SMARTSET# [id number] Completed 05/03/2024, 08/27/2023, 09/02/2011 Influenza Vaccine (FLU [...] study not interpreted or resulted by a [employer] or [employer] contracted radiologist. Salma Jorgensen PA-C RADIOLOGY ([facility] ) Final Result documented in this encounter Care Teams Crna Relationship Specialty Start Date End Date Lary Eng PA-C [address] [place] [phone] PCP - General Physician Marble Chip Terrazzo Worker 06/05/19 documented as of this encounter
--- OUTSIDE RECORDS SUMMARY | 2025-01-10 07:54 | External Medical Summary | Summary of Care ---
Author Name Unknown Organization [facility] Address [address] [facility] [place] [address] Phone [phone] Care Team Providers Care Continuity Tester Name Role Phone Lary Eng PA-C Primary Care Provider + Reason for Visit * Reason Comments Follow Up Pt here for yearly f ull skin exam. Hx of non-melanoma skin cancer. No concerns. Encounter Details Date Type Department Care Team (Late st Contact Info) Description 12/28/2024 3:40 PM EST [facility] [place] [phone] Salma Jorgensen PA-C [address] [place] [address] [place] [phone] History of nonmelanoma skin cancer*; Hypertrophic scar; Skin exam, screening for cancer; Multiple nevi; Lentigines; Ephelides; Actinic keratosis Allergies Active Allergy Reactions Criticality Noted Date Comments Cefuroxime Axetil Nausea/vomiting 12/13/2008 documented as of this encounter (statuses as of 12/28/2024) Medications OXYGEN 2 liter at hs 0 [...] as of this encounter (statuses as of 12/28/2024) Active Problems Problem Noted Date Diagnosed Date [...] as of this encounter (statuses as of 12/28/2024) Resolved Problems Problem Noted Date Diagnosed Date [...] as of this encounter (statuses as of 12/28/2024) Immunizations Name Administration Dates Next Due COVID-19 mRNA, LNP-s, No Pre serve, 2-Dose Series (Moderna) 02/01/2021,12/28/2020 COVID-19, MRNA-LNP, PF, 30 M CG/0.3 mL, 12 YRS AND ABOVE, IM (PFIZER-Comirnaty) 10/12/2024,01/06/2024 COVID-19, mRNA, LNP-s, PF, B ooster, 100mcg/0.5mg (Moderna) 05/29/2022,10/27/2021 Covid-19, Mrna, Lnp-s, Pf, B ivalent, 30 Mcg, IM, 12 yrs and above (Pfizer) 09/16/2022 Pneumococcal Conjugate Vacc, 13 Valent (Prevnar) [...] zinc. Product examples; Think sport, Think baby, Green Graphix, Deminos, Mobiquity, [place] baby. "Baby" products can be used [...] either or our main Dermatology office in [place] at [phone]. If an emergency, please go to your nearest Emergency Department. documented in this encounter Progress Notes * Salma Jorgensen PA-C - 12/28/2024 3:40 PM EST SUBJECTIVE: History of Present Illness: Milagro Tanner is a 73 year old female seen today for follow up of full skin exam. Previous office visit: 10/27/2022 Last attempted treatments include: NONE No new or changing lesions, per pt. Squilgeer Documentation Patient offered minister assistant and declined. REVIEW OF SYSTEMS: SKIN: No [...] 07/20) Reviewed, same day as visit, 0 [facility] Dermatology lab work(s)/pathology report(s) as well as [...] Salma Jorgensen PA-C 12/28/2024 3:39 PM Dermatology, [address] [facility] [place] [phone] documented in this encounter Nursing Notes * [...] Description 04/04/2025 11:00 AM EDT Appointment Radiology, [facility] [address] [place] [address] 05/04/2025 10:00 AM EDT Laboratory Laboratory Patient Service [address] [phone] [address] 05/09/2025 9:00 AM EDT Office Visit [address] [phone] Lary Eng PA-C [address] [place] [address] 02/26/2026 10:20 AM EDT Office [facility] [address] [place] [phone] Salma Jorgensen PA-C [address] [place] [address] [place] [phone] Health Maintenance Due Date Last Done Comments Cologuard 1996 Sigmoidoscopy 1996 Fecal Occult Blood Test 12/08/2007 12/08/2006 Adult Wellness Visit 02/20/2021 02/21/2020 DXA Scan 03/19/2025 03/19/2023, 02/28, 01/20/2018, Additional history exists Depression Screening 04/15/2025 04/15/2024, 02/20/20 15 Mammogram 08/16/2025 08/16/2024, 02/28, 12/11/2021, Additional history exists GFR 08/25/2025 08/25/2024, 06/03/2024, 08/27/2023, Additional history exists Albumin/Creatinine Ratio 09/02/2025 [...] D LEVEL ONCE IN A LIFETIME-USE SMARTSET# [id number] Completed 05/03/2024, 08/27/2023, 09/02/2011 Influenza Vaccine (FLU [...] study not interpreted or resulted by a [facility] or [facility] contracted radiologist. Salma Jorgensen PA-C RADIOLOGY ([facility] ) Final Result documented in this encounter Visit Diagnoses Diagnosis History of nonmelanoma skin cancer- Primary Personal history of other malignant neoplasm of skin Hypertrophic scar Keloid scar Skin exam, screening for cancer Screening for malignant neoplasm of the skin Multiple nevi Benign neoplasm of skin, site unspecified Lentigines Other dyschromia Ephelides Other dyschromia Actinic keratosis documented in this encounter Care Teams Continuity Tester Relationship Specialty Start Date End Date Lary Eng PA-C [address] [place] [id number] PCP - General Physician Machine Bander And Cellophaner 06/05/19 documented as of this encounter
--- OUTSIDE RECORDS SUMMARY | 2025-01-10 07:54 | External Medical Summary | Summary of Care ---
Author Name Unknown Organization [facility] Address [address] [facility] [place] [address] Phone [phone] Care Team Providers Care Shot Core Drill Operator Name Role Phone Lary Eng PA-C Primary Care Provider + Encounter Details Date Type Department Care Team (Late st Contact Info) Description 12/20/2024 Population Health External Data Unspecified Department Allergies Active Allergy Reactions Criticality Noted Date Comments Cefuroxime Axetil Nausea/vomiting 12/13/2008 documented as of this encounter (statuses as of 12/20/2024) Medications OXYGEN 2 liter at hs 0 [...] as of this encounter (statuses as of 12/20/2024) Active Problems Problem Noted Date Diagnosed Date [...] as of this encounter (statuses as of 12/20/2024) Resolved Problems Problem Noted Date Diagnosed Date [...] as of this encounter (statuses as of 12/20/2024) Immunizations Name Administration Dates Next Due COVID-19 [...] Description 12/28/2024 3:40 PM EST [facility] [phone] Salma Jorgensen PA-C [address] [place] [address] [place] [phone] 04/04/2025 11:00 AM EDT Appointment Radiology, [place] [id number] [place] [address] 05/04/2025 10:00 AM EDT Laboratory Laboratory Patient Service [facility] [address] [place] [phone] [place], [facility] [address] [place] [address] 05/09/2025 9:00 AM EDT Office Visit [facility] [address] [place] [phone] Lary Eng PA-C [address] [place] [phone] Health Maintenance Due Date Last Done Comments [...] D LEVEL ONCE IN A LIFETIME-USE SMARTSET# [id number] Completed 05/03/2024, 08/27/2023, 09/02/2011 Influenza Vaccine (FLU [...] Not on filedocumented as of this encounter Care Teams Shot Core Drill Operator Relationship Specialty Start Date End Date Lary Eng PA-C [address] [place] [phone] PCP - General Physician Fashion Coordinator 06/05/19 documented as of this encounter
[2025-01-10] MEDS: TRANEXAMIC ACID 1,000 MG **IV Intra-op IV SCH (08:08)
--- NOTE | 2025-01-10 09:10 | Operative Report ---
PG Post Operative Report Pre & Post Diagnosis Operation Date: 01/10/25 08:50 Pre-Op Diagnosis: Right Knee Degenerative Joint Disease Post-Op Diagnosis: Right Knee Degenerative Joint Disease I identified the patient and participated in the time-out.: Yes Procedure Operation Date: 01/10/25 08:50 Actual Procedures p Right Total Knee Arthroplasty(Right) - Lukasz Garcia MD Surgeon Lukasz Garcia MD Tapper Bit GENNY Flores Estimated Blood Loss 50 Findings Consistent with Post-Op Diagnosis Specimens Right knee sent for pathology. Anesthesia Type Spinal MAC Complications none Disposition Accompanied Patient To Recovery: No Indications Patient is a 74-year-old female with a long history of bilateral knee pain discomfort describes gotten worse over time. She had her left knee replaced about 15 months or so ago. She is done well from this. She continues to be limited by right knee pain discomfort. She failed conservative measures. X- rays show advanced right knee arthritis. She elected proceed with right total knee arthroplasty. Description of Procedure Operative implants consist of: 1 Biomet Vanguard size 67.5 right posterior stabilized femoral component. 2. Biomet size 71 tibial tray. 3. 10 mm posterior stabilized polyethylene insert. 4. 31 x 8 all poly patella. The patient was taken the operating, identified, placed on the operating table in the supine position. All conductors were appropriately padded. IV antibiotics fibra anesthesia team. A spinal anesthetic and adductor canal block had been Weida in the holding area. A Corbin catheter was placed in sterile fashion. A right thigh high tourniquet was placed. The right lower extremity was then prepped and draped in usual sterile fashion. The right leg was elevated and exsanguinated with use of an Esmarch and a turn was placed at 300 mmHg. An anterior approach of the right knee was then performed to a longitudinal incision centered over the patella. Sharp dissection was got through subcutaneous tissue down the extensor mechanism. A medial parapatellar arthrotomy incision was made. Some subperiosteal dissection was carried out medially. The fat pad was resected from his patella tendon. Lateral patellofemoral ligament was released. Patella subluxated laterally and the knee was flexed. The osteophytes taken off the distal femur. ACL and PCL were then released from distal femur and the tibia subluxated anteriorly. The external tibial alignment jig was then placed on the anterior face the tibia adjusted 14 mm medially. The proximal tibial cut was made remove out of millimeter bone from the medial side. Some osteophytes taken off medial and posterior medially. The tibia sized to a size 71. Attention drawn the femur. The distal femur examined the sharp drop with intramedullary canal was suction. A right 5 degree valgus cutting guide was placed. The distal femoral cutting block was pinned in place. This femoral cut was made to take an additional 3 mm of bone off distal femur. The femur was then sized to a size 67.5. We downsized this almost an entire size due to the narrow medial and lateral dimensions of the femur. The AP cutting block was pinned parallel to the epicondylar axis which was 4 degrees of external rotation. The anterior cut, anterior chamfer, posterior cut, posterior chamfer cuts were made. The box cutting guide was placed and just slight lateral and the box cut was made. The knee was flexed. The remnants of medial and lateral menisci were excised. The osteophytes at posterior aspect the femur. Trial femoral component was placed. The tibial tray was pinned Karen extra rotation and the drill and stem punch use great defect in proximal tibia for the tibial tray. The knee was then trialed and the 10 mm insert fit most appropriately. Attention drawn the patella. The patella was cleaned of all soft tissue. Patella thickness measured 24 mm in thickness was cut down to 14. Was sized to a size 31 patella. The locals were drilled for 31 patella. The lateral osteophytes removed. Patella button was placed. Knee was taken through range of motion and the patella tracked nicely with no thumbs test. Attention joint replacement permanent components. All trial components were removed. Bone plug was placed into this femur limit blood loss. A double batch Palacos G cement was mixed. A Biomet Vanguard size 67.5 right posterior Byce femoral component, size 71 tibial tray, 10 mm posterior Byce polyethylene insert, and a 31 x 8 all poly patella then cemented in place. The knee was brought out into full extension till cement hardened. Final cement check was then performed. The pericapsular tissues were injected with total 100 cc of Ortho mix. Patient did receive 1 g tranexamic acid. The tourniquet was then let down for final turn time 53 minutes. Hemostasis surges electrocautery. The extensor Metros then closed with combination 1 PDS suture and 1 Vicryl suture in a aipugu-gl-lmywf fashion. Extensor Meclomen checked found be intact with subcutaneous tissue then closed with 2 Dexon suture in a buried erupted fashion skin was closed skin mark. Leg was then cleaned and dried and a sterile dressing with Xeroform, 4 fours, sterile cast padding and Valentín bandage were applied. Patient then transferred to the recovery room in stable condition. Patient tolerated procedure well and there are no compl ications. Dieter Flores, my physician pharmacy technician assistant, was present for the entire procedure. His assistance was essential and required for appropriate patient positioning, prepping and draping, surgical exposure, performing the technical details of the operation, placement the implants, closure of the wound, and placement of the sterile bandage. I attest to the content of the Intraoperative Record and any orders documented therein. Any exceptions are noted below.
--- NOTE | 2025-01-10 09:36 | XRay Report ---
XR knee RT 1 or 2V routine CLINICAL HISTORY: Postoperative evaluation. COMPARISON: Right knee radiographs November 10, 2024. FINDINGS: Alignment of the total right knee arthroplasty is anatomic. There is no periprosthetic fra cture or unexpected radiopaque foreign body. There are skin mark. IMPRESSION: Expected findings following total right knee arthroplasty. ACT 112: Negative or not required by law. Electronically signed by: Vishal Ann M.D. 01/10/2025 9:34 AM
--- NOTE | 2025-01-10 10:03 | Anesthesiology Progress Note ---
Date of Service January 10, 2025 Anesthesia Post Procedure Vital Signs Vital Signs: Temp Pulse Pulse Resp BP Pulse Ox O2 Del Method 01/10/25 10:00 65 16 125/71 96 Nasal Cannula 01/10/25 09:50 65 16 129/73 96 Nasal Cannula 01/10/25 09:40 67 18 134/74 99 Nasal Cannula 01/10/25 09:30 65 16 136/76 96 Nasal Cannula 01/10/25 09:20 36.5 C 66 16 135/70 96 Oxymask 01/10/25 09:10 68 16 133/75 97 Oxymask 01/10/25 09:01 36.7 C 70 14 129/78 97 Oxymask 01/10/25 06:40 37 C 60 20 166/88 H 97 Room Air O2 Flow Rate 01/10/25 10:00 2 01/10/25 09:50 2 01/10/25 09:40 2 01/10/25 09:30 2 01/10/25 09:20 3 01/10/25 09:10 6 01/10/25 09:01 6 01/10/25 06:40 Transfer of Care Handoff Completed per policy Notes Mental Status: alert / awake / arousable Patient Amnestic to Procedure: Yes Nausea / Vomiting: adequately controlled Pain: adequately controlled Airway Patency, RR, SpO2: stable & adequate BP & HR: stable & adequate Hydration State: stable & adequate Neuraxial Anesthesia: was administered and sensory block is resolving Anesthetic Complications: no major complications apparent and Pt Satisfied with anesthetic care
[2025-01-10] MEDS ORDERED: LORazepam 1 MG TAB PO PRN (10:44)
[2025-01-10] MEDS ORDERED: ALUMINUM/MAGNESIUM SUSP 30 ML UDC PO PRN (10:44)
[2025-01-10] MEDS ORDERED: bisacodyL 10 MG SUPP PR PRN (10:44)
[2025-01-10] MEDS ORDERED: NON-FORMULARY MEDICATION (Multivitamin Tablet) PO SCH (10:44)
[2025-01-10] MEDS ORDERED: MAGNESIUM HYDROXIDE SUSP 30 ML UDC PO PRN (10:44)
[2025-01-10] MEDS ORDERED: NALOXONE HCL 0.4 MG/1 ML VIAL/CARP IV PRN (10:44)
[2025-01-10] MEDS ORDERED: SENNA 8.6 MG TAB PO SCH (10:44)
[2025-01-10] MEDS ORDERED: HYDROmorphone INJ 0.5 MG/0.5 ML SYR IV PRN (10:44)
[2025-01-10] MEDS ORDERED: METOCLOPRAMIDE HCL INJ 5 MG/ML 2 ML VIAL IV PRN (10:44)
[2025-01-10] MEDS: ATENOLOL 50 MG TABLET PO SCH (12:16)
[2025-01-10] MEDS: ATORVASTATIN 40 MG TAB PO SCH (12:16)
[2025-01-10] MEDS: FLUoxetine HCL 20 MG CAP PO SCH (12:16)
[2025-01-10] MEDS: ASPIRIN 81 MG ECTAB PO SCH (12:16)
[2025-01-10] MEDS: OXYBUTYNIN CHLORIDE XL 5 MG TABCR PO SCH (12:18)
[2025-01-10] MEDS: KETOROLAC TROMETHAMINE 15 MG/ML VIAL IV SCH (12:27)
[2025-01-10] MEDS: CALCIUM 600MG + VIT D 400 IU TAB PO SCH (12:43)
[2025-01-10] MEDS: lisinopril 20 MG TAB PO SCH (12:44)
[2025-01-10] MEDS: FAMOTIDINE 40 MG TABLET PO SCH (12:44)
[2025-01-10] MEDS: TRANEXAMIC ACID / 0.7% NACL 1,000 MG/100 ML BAG IV SCH (15:31)
[2025-01-10] MEDS: ASCORBIC ACID 500 MG TAB PO SCH (17:07)
[2025-01-10] MEDS: CETIRIZINE HCL 10 MG TABLET PO SCH (21:29)
[2025-01-10] MEDS: DOCUSATE SODIUM 100 MG CAP PO SCH (21:29)
[2025-01-10] MEDS: SENNA 8.6 MG TAB PO SCH (21:29)
[2025-01-10 22:45] VITALS: O2SAT 98
[2025-01-11 06:34] LABS: Mean Corpuscular Hgb Conc 34.5 g/dL (32.0-36.0); Mean Corpuscular Volume 87.1 fL (80.0-100.0); Mean Platelet Volume 9.8 fL (9.4-12.4); Platelet Count 143 K/uL (130-400); RDW Coefficient of Variation 12.8 % (11.5-14.5); RDW Standard Deviation 40.6 fL (36.4-46.3); Red Blood Count 3.33 M/uL (4.20-5.40); White Blood Count 8.42 K/ul (4.8-10.8)
[2025-01-11 06:54] LABS: BUN Creatinine Ratio 23.6 (10-20); Calcium 8.7 mg/dl (8.6-10.3); Creatinine Clr Calc Pharmacy 67.4 ml/min; Potassium 4.2 mmol/L (3.5-5.1)
--- NOTE | 2025-01-11 07:28 | Orthopedic Progress Note ---
Date of Service January 11, 2025 Assessment & Plan (1) Status post right knee replacement: Plan: 74-year-old female postop day 1 from right knee replacement doing pretty well. Pains controlled. She is neurologically intact. Plan: 1. DVT prophylaxis including thigh-high teds, SCDs, aspirin twice a day. 2. PT/OT. Weight-bear as top. Right total knee protocol. 3. Pain control. Doing well with current pain regimen. 4. Disposition. Plan is to discharge to home with some home health after therapy today. (2) History of total left knee replacement: Admission and Anticipated Discharge Date Admission Date: January 10, 2025 Subjective 74-year-old female postop day 1 from right knee replacement. She is doing pretty well this morning. Had a reasonable night. Pains been controlled. No chest pain or shortness of breath. Not feeling dizzy or lightheaded. Hoping to go home today. Physical Exam Physical Exam: Physical nation was a pleasant middle-age female. Hide to wake her this morning. Examination of the right leg reveals leg to be well aligned. Dressings clean dry and intact. No drainage. She can do a straight leg raise. She can dorsiflex and plantarflex her foot appropriately. Respiratory: normal respiratory effort, lungs clear to auscultation Cardiovascular: RRR, no murmur, no edema Gastrointestinal (Abdomen): normal bowel sounds, soft, nontender, no hepatosplenomegaly Results & Data Vital Signs (Past 12 Hours) Vital Signs Temp Pulse Resp BP Pulse Ox O2 Del Method O2 Flow Rate 01/11/25 03:30 36.7 C 71 18 156/80 H 98 Nasal Cannula 2 01/10/25 22:43 36.6 C 74 14 134/75 98 Nasal Cannula 2 Laboratory Results Hemoglobin is 10.0. Hematocrit is 29.0. Electrolytes are stable.
[2025-01-11 07:41] VITALS: BP 172/68; PULSE 68; RESP 16; TEMP 98.8
[2025-01-11] MEDS: MULTIVITAMIN TAB PO SCH (09:01)
[2025-01-11] MEDS: dexAMETHasone 10 MG in SYRINGE 0 ML IV SCH (09:03)
[2025-01-11] MEDS: traMADol HCL 50 MG TABLET PO PRN (10:38)
--- NOTE | 2025-01-14 08:12 | Discharge Summary ---
Date of Service January 14, 2025 Admission HPI (Per Admitting) . The patient is a 74-year-old female who presents now for surgical treatment of her right knee. Stef a long history of knee problems had her left knee replaced about 15 months ago. She has occasional aching pain in this knee but doing pretty well. She continued be limited and bothered by right knee pain. She has had injections which have become less successful over time. Describes global pain. The more she is up and onto more it hurts. She limps more as the day goes on. She has nighttime pain. Ready to have this knee fixed. Admission Exam (Per Admitting) . Physical examination reveals a pleasant middle-age female. Looks to be in pretty good health. Examination of both knees reveal patient walks independently. Examination of the right knee reveals slight varus alignment to her knee. Tender with medial joint line. Small knee effusion. Range of motion 5-1 20. No instability. No pain with hip motion. Examination left knee reveals a well-healed incision. She has anatomic alignment to the knee. Range of motion 0-1 20. Good straight leg raise. No instability. Principal Diagnosis Same as "Discharge Diagnosis" noted below under Discharge Instructions. Discharge Data Procedures Performed Operation Date: 01/10/25 08:50 Actual Procedures p Right Total Knee Arthroplasty(Right) - Lukasz Garcia MD Ordered Studies 01/10/25 05:00 US - OR guided needle placemen Routine Hospital Course (1) Status post right knee replacement: This is a 74 year old patient admitted on 01/10/25 and underwent total knee arthroplasty. She tolerated the procedure well and there were no complications. Transferred to the PACU post op and later to the orthopedic floor for further care. She was given ancef for antibiotic prophylaxis. She was also given LAUREN stockings, SCDs, and aspirin for DVT prophylaxis. Hemoglobin, hematocrit, and vital signs were monitored during her hospital stay and remained stable. Did not require any blood transfusions. There were no complications during her hospital stay. By post op day #1 the patient was tolerating a regular diet, pain was reasonably controlled with oral pain medicine, and she was participating in physical therapy. On post op day #1 the patient was discharged home and set up with home health care. She was given printed discharge instructions including prescriptions for extra strength tylenol, aspirin, cefadroxil, zofran, senokot, and tramadol. Continue physical therapy, weight bearing as tolerated. Continue LAUREN stockings. Follow up approximately 2 weeks post op or sooner if there are problems or concerns. Discharge Plan Discharge Items Patient Disposition: Home - Home Health Services Reason For Visit: Osteoarthritis Knee Right Discharge Diagnosis: Right Knee REplacement Activity: Per Instructions section Weightbearing: Full weightbearing Non-emergency contact: Surgeon Call non-emergency contact if: you have any medication questions Follow-up/Referrals: Lary Eng PA-C [Primary Care Provider] - Diet: Regular Addtl Attending Provider Instructions: ACTIVITY RECOMMENDATIONS: Diet: * You may resume previous diet. Physical Therapy: * You will go to physical therapy three times each week for four to six weeks after your surgery in order to regain your knee range of motion and to retrain your knee to work properly. * It is just as important to make sure you are getting your knee perfectly straight as it is to regain your knee bend. * Taking a pain pill an hour before therapy can help you have a more productive and comfortable therapy session. Home Exercise: * You were shown a series of exercises (heel props, heel slides, etc.) in the hospital. Do these exercises three to four times each day including the exercises you were shown in physical therapy. Walking: * Get up and walk several times each day. For the first four weeks, try not to stand or walk for more than one hour at a time. If you do stand or walk for more than one hour, you will not hurt anything, but your knee and leg will likely swell. * As you feel comfortable, you may change from the walker or crutches to a cane and then to independent walking. MEDICATIONS: New Medicine: * You will likely be taking one or more of these medications: 1. Oxycodone - A quick and shorter-acting pain medication. Take one to two tablets every six hours to lessen your pain. 2. Aspirin - Thins your blood to lessen the chance of forming a blood clot. * The most common side effects of pain medicine and iron are nausea and constipation. If nausea or constipation is too much of a problem or if you have any questions about your new medicines or doses, call [facility] at . We will try to help you manage these issues. "VERY IMPORTANT TO READ AND REVIEW" Pain: * The immediate post-operative period after knee replacement surgery is often quite painful. * You are given a prescription for pain medicine. You should take it, as directed, when you need it, especially before physical therapy and before going to bed. Pain that interferes with sleep is very common and can last several months. * You will likely need pain medicine for the first four to six weeks. It will not stop all of the pain. The pain will lessen and as you feel better, you may change to milder pain medicine such as Tylenol. * The most common side effects of pain medicine are nausea and constipation, so don't take more than you need. SPECIAL CARE INSTRUCTIONS: TEDs/Elastic Stockings: * The white elastic stockings help limit swelling and prevent blood clots from forming in your legs. The more you wear them, the more they work. * Wear them for six weeks after knee replacement surgery and four weeks after partial knee replacement. Incision Site Care: * Remove dressing postoperative day 2 and then shower. Keep direct shower pressure off the incision site. * After showering, cover mark with dry gauze and change daily or more frequently if the dressing is getting saturated with drainage. * Use the LAUREN stockings to hold dressing in place. DO NOT apply tape on the skin. * May completely stop using bandage if wound is dry and no drainage * Mark are removed between 2 and 3 weeks post-op. If your follow-up appointment is made before 2 weeks, please have your appointment re- scheduled. It is too early to remove the mark. Prevention of Infection: * Take antibiotics one hour before any dental cleaning, dental work, urological procedure, gastrointestinal procedure or any invasive surgery in order to prevent your new joint from getting infected. * You may get the antibiotics from the doctor performing the procedure or you may call our office at [phone] before and we will call in a prescription to the pharmacy of your choice. Things to Watch For: * Drainage from the incision site that occurs more than one week after your surgery. * Severely increased knee/leg pain or swelling. * Increased redness at the incision site. * Fever above 102 degrees Fahrenheit. * Unusual chest pain or shortness of breath. * Unusual pain or burning with urination. Call [facility] at [phone] with any of the above problems or if you have any questions about your medicines or recovery. FOLLOW UP VISIT: Make an appointment to see your doctor for approximately two weeks after surgery for a progress check and staple removal by calling the office at [phone]. Pending Studies at Discharge: No Stand-Alone Forms: [facility], Smoking Cessation Medications and DC Order Prescriptions: Continued solifenacin 10 mg tablet See Rx Instructions .ROUTE .COMPLEX Qty: 30 0RF Dose Instruction: TAKE 1 TABLET BY MOUTH DAILY Rx Instructions: TAKE 1 TABLET BY MOUTH DAILY tramadol 50 mg tablet 50 - 100 mg PO Q6 PRN (Reason: pain) Qty: 40 0RF Rx Instructions: Take as needed for pain ondansetron 4 mg tablet,disintegrating 4 mg PO Q8 PRN (Reason: nausea) Qty: 20 1RF Rx Instructions: Take as needed for nausea sennosides [Senokot] 8.6 mg tablet 8.6 mg PO BID 14 Days Qty: 28 0RF Rx Instructions: Take two times a day to prevent/treat constipation acetaminophen [Tylenol Extra Strength] 500 mg tablet 1,000 mg PO TID 30 Days Qty: 180 0RF Rx Instructions: Take 3 times per day to lessen pain. aspirin [Sidney Low Dose Aspirin] 81 mg tablet,delayed release (DR/EC) 81 mg PO BID 45 Days Qty: 90 0RF Rx Instructions: Take to prevent blood clots. cefadroxil 500 mg capsule 500 mg PO BID 7 Days Qty: 14 0RF Rx Instructions: Take 1 cap twice a day to prevent infection atorvastatin 40 mg tablet 40 mg PO QAM lisinopril 20 mg tablet 20 mg PO QAM Rx Instructions: Take 1 tablet by mouth every other day famotidine 40 mg tablet 40 mg PO QAM alendronate 70 mg tablet 70 mg PO Q7D Rx Instructions: 1 tablet by mouth once a week lorazepam 1 mg Tablet 1 mg PO TID PRN (Reason: Anxiety) fluoxetine [Prozac] 20 mg capsule 20 mg PO QAM Rx Instructions: 1 capsule by mouth every other day atenolol 50 mg tablet 50 mg PO QAM calcium carbonate-vit D3-min 600 mg calcium- 400 unit Tablet 1 tab PO BID levocetirizine 5 mg tablet 5 mg PO QPM multivitamin Tablet 1 tab PO QAM aspirin [Sidney Low Dose Aspirin] 81 mg tablet,delayed release (DR/EC) 81 mg PO QAM Rx Instructions: Take to prevent blood clots. Admission Data Admit Date/Time: 01/10/25 09:04 Attending Provider: Lukasz Garcia Admit Provider: Lukasz Garcia Primary Care Provider: Lary Eng Other Providers: [facility],Home Health Other Interventions: Discharge Summary Assessment (RN) Last Done: 01/11/25 10:34
== END 2025-01-11 12:36 | disposition home health service (06) ==
LOC: ASU 05:59 → 3E 05:59